=== PATIENT | male | born 1995 | race Caucasian/White ===

== ENCOUNTER 2025-05-05 01:14 | Emergency (ER) | payer BC ==
[~2025-05-05] VITALS: Ht 170.2 cm; Wt 59.0 kg
[2025-05-05 01:18] VITALS: O2SAT 98
[2025-05-05] MEDS ORDERED: AZIT250T12 MT (03:47)
[2025-05-05 04:17] LABS: BASOPHILS % 0.2 % (0.0-2.0); EOSINOPHILS % 2.9 % (0.0-5.0); HEMATOCRIT. 42.5 % (42.0-52.0); HEMOGLOBIN. 14.3 g/dL (14.0-18.0); LYMPHOCYTES % 7.9 % (20.0-50.0); MEAN PLATELET VOLUME 7.2 fl (7.4-10.4); MONOCYTES % 5.8 % (2.0-8.0); NEUTROPHILS % 83.2 % (40.0-76.0); PLATELET 293 x1000/uL (130-400); RED BLOOD CELL COUNT 4.53 mill/uL (4.7-6.1); RED CELL DISTRIBUTION WIDTH 14.1 % (11.6-14.6)
[2025-05-05 04:25] VITALS: BP 121/84; PULSE 95; RESP 18; TEMP 37; O2SAT 100
== END 2025-05-05 04:25 | disposition home or self-care (01) ==
LOC: ER 01:14
DX: J18.9 Pneumonia, unspecified organism (principal); Z79.899 Other long term (current) drug therapy
CPT/HCPCS: 36415; 71045; 85025; 93005; 99285